=== PATIENT | male | born 1950 | race Caucasian/White ===

== ENCOUNTER 2017-05-16 18:44 | Emergency (ER) | payer OTHER ==
[~2017-05-16] VITALS: Ht 177.8 cm; Wt 54.4 kg
[2017-05-16 19:02] VITALS: BP 150/91; PULSE 109; RESP 20; TEMP 98.8; O2SAT 96
[2017-05-16 21:23] LABS: BASOPHILS # (AUTO) 0.1 K/uL (0.0-0.2); BASOPHILS % (AUTO) 1.2 % (0.0-2.0); EOSINOPHILS % (AUTO) 0.1 % (0.0-4.0); HEMATOCRIT 55.8 % (36-54); HEMOGLOBIN 17.9 g/dL (14.0-18.0); LYMPHOCYTES # (AUTO) 1.3 K/uL (1.0-5.5); MEAN CORPUSCULAR HEMOGLOBIN 29 pg (27-31); MEAN CORPUSCULAR HGB CONC 32 % (32-36); MEAN CORPUSCULAR VOLUME 91 fL (79.0-98.0); MONOCYTES # (AUTO) 1.2 K/uL (0.0-1.0); MONOCYTES % (AUTO) 10.1 % (1.7-9.3); NEUTROPHILS # (AUTO) 9.1 K/uL (1.8-7.7); NEUTROPHILS % (AUTO) 77.6 % (40.0-70.0); PLATELET COUNT (AUTO) 537 K/uL (130-430); RED BLOOD CELL COUNT(AUTO) 6.15 MIL/uL (4.2-6.2); RED CELL DISTRIBUTION WIDTH 14.8 % (9.0-15.0); WHITE BLOOD COUNT (AUTO) 11.7 K/uL (4.8-10.8)
[2017-05-16 21:30] LABS: CALCIUM 10.8 mg/dL (8.4-11.0); CREATININE 1.49 mg/dL (0.55-1.30); POTASSIUM 3.7 mmol/L (3.5-5.1)
[2017-05-16 21:35] LABS: ALBUMIN 3.9 g/dL (3.4-4.8); TOTAL BILIRUBIN 0.9 mg/dL (0.0-1.0)
[2017-05-16] MEDS ORDERED: ACETAMINOPHEN 500 MG TABLET PO ONE (21:45)
[2017-05-16] MEDS ORDERED: NACL 0.9% 1,000 ML IV ONE (23:15)
[2017-05-16 23:21] LABS: PROTHROMBIN TIME 10.5 SECS (9.5-12.5)
[2017-05-17] MEDS ORDERED: levETIRAcetam 1,000 MG in NS 100 ML IV ONE (01:30)
[2017-05-17] MEDS ORDERED: LORazepam 2 MG/ML VIAL (FOR ER USE) IVP ONE (02:30)
[2017-05-17] MEDS ORDERED: hydrALAZINE HCL 20 MG/ML VIAL IVP ONE (03:00)
[2017-05-17 03:16] VITALS: BP 134/80; PULSE 98; RESP 20; TEMP 97.4; O2SAT 96
== END 2017-05-17 03:22 | disposition short-term general hospital (02) ==
LOC: SED 18:44
DX: S06.5X9A Traumatic subdural hemorrhage with loss of consciousness of unspecified duration, initial encounter (principal); S93.401A Sprain of unspecified ligament of right ankle, initial encounter; N17.9 Acute kidney failure, unspecified; E86.0 Dehydration; R53.1 Weakness; Z86.11 Personal history of tuberculosis; W01.0XXA Fall on same level from slipping, tripping and stumbling without subsequent striking against object, initial encounter; Y93.89 Activity, other specified; Y92.89 Other specified places as the place of occurrence of the external cause; Y99.8 Other external cause status
CPT/HCPCS: 36415; 70450; 71010; 72125; 73610; 80053; 84484; 85025; 85610; 85730; 93005; 96361; 96365; 96375; 99285; J0360; J1953; J2060; J7030